=== PATIENT | male | born 1950 | race Caucasian/White ===

== ENCOUNTER 2018-06-19 12:45 | Observation (INO) | payer OTHER ==
[~2018-06-19] VITALS: Ht 180.3 cm; Wt 107.3 kg
--- NOTE | ~2018-06-19 | HEMODYNAMI ---
PATIENT:VICKIE SMITH MEDICAL RECORD: [id number] : 46 [facility] D.2123 [id number] ADMISSION DATE: 06/19/18 Generatedon:06/20/201816:04 Patient name: VICKIE SMITH Patient #: [id number] SSN: D OB: 1950 Date of study: 06/20/2018 Page: Of Hemodynamic Procedure Report Patient Data Patient Demographics Procedure consent was obtained First Name: VICKIE Gender: Male Last Name: LUIS : 1950 Middle Initial: D Age: 68 year(s) Patient #: [id number] Race: Unknown Additional ID: [id number] Contact details [address]: [address] [place] [address] State: [place] City: [place] Zip code: [address] Past Medical History Allergies Allergen Reaction Date Comments Reported Other allergy 06/20/2018 Niacin Admission Admission Data Admission Date: 06/19/2018 Admission Time: 12:45 Admit Source: Other Room #: D.2123 Lab Results Lab Result Date: 06/20/2018 Lab Result Time: 5:18 Biochemistry Name Units Result Min Max BUN mg/dl 16 --(---*)-- 7 18 Creatinine mg/dl 1.2 --(---*)-- 0.6 1.3 CBC Name Units Result Min Max Hematocrit % 44.5 --(*---)-- 42 54 Hemoglobin g/dl 15.1 --(-*--)-- 13.5 17.5 Procedure Procedure Types Cath Procedure Diagnostic Procedure LHC LHC w/Coronaries Procedure Description Procedure Date Procedure Date: 06/20/2018 Procedure Start Time: 15:55 Procedure End Time: 16:03 Procedure Staff Name Function Edson Cartwright MD Performing Physician Sherie Hawkins RT Monitor Bertram Rodriguez RT Scrub Timmy Anne RN Nurse Procedure Data Cath Procedure Fluoroscopy Diagnostic fluoroscopy Total fluoroscopy Time: 1.3 time: 1.3 min min Diagnostic fluoroscopy Total fluoroscopy dose: 514 dose: 514 mGy mGy Contrast Material Contrast Material Type Amount (ml) Isovue 300 39 Entry Location Entry Primary Successful Side Size Upsize Upsize Entry Closure Christie ccessful Closure Location (Fr) 1 (Fr) 2 (Fr) Remarks Device Remarks Radial Right 6 Fr Mechanical artery Short Compression Estimated blood loss: 10 ml Diagnostic catheters Device Type Used For End Catheter Placement DIAGNOSTIC [place] 110cm 5 Procedure Fr catheter ([id number]) Procedure Complications No complications Procedure Medications Medication Administration Route Dosage 0.9% NaCl I.V. 100 ml/hr Oxygen etCO2 Nasal cannula 2 l/min Heparin Flush Bag added to field 2 bags (1000units/500ml NS) Lidocaine 2% added to field 20 Radial Cocktail added to field 1 syringe (Verapomil 2mg/Nitro 400mcg/Heparin 1500units) Versed I.V. 2 mg Fentanyl I.V. 100 mcg Radial Cocktail I.A. 1 syringe (Verapomil 2mg/Nitro 400mcg/Heparin 1500units) Hemodynamics Rest HGB: 15.1 (g/dl) Heart Rate: 68 (bpm) Snapshots Pre Cath Intra NCS Post Cath Vital Signs Time Heart Resp SPO2 etCO2 NIBP (mmHg) Rhythm Pain Sedation Rate (ipm) (%) (mmHg) Status Level (bpm) 15:48:35 64 16 98 37.5 166/87(128) A-Fib 0 (11) 10(A) , No pain 15:52:53 68 14 97 0 161/101(120) A-Fib 0 (11) 10(A) , No pain 15:57:13 74 15 97 33 131/88(127) A-Fib 0 (11) 10(A) , No pain 16:01:23 61 19 92 39.7 138/97(117) A-Fib 0 (11) 10(A) , No pain Medications Time Medication Route Dose Verified Delivered Reason Notes Effectiveness by by 15:47:21 0.9% NaCl I.V. 100 Timmy Timmy Per ml/hr Dayana Anne physician RN RN 15:47:31 Oxygen etCO2 2 l/min Timmy Timmy for low 02 Nasal Dayana Anne sats cannula RN RN 15:47:42 Heparin Flush added 2 bags Timmy Timmy used for Bag to Dayana Anne procedure (1000units/500ml field RN RN NS) 15:47:52 Lidocaine 2% added 20ml Timmy Timmy for local to vial Lorigan Dayana anesthetic RN RN 15:48:54 Radial Cocktail added 1 Timmy Timmy used for (Verapomil to syringe Dayana Anne procedure 2mg/Nitro field SEGUNDO RN 400mcg/Heparin 1500units) 15:54:55 Versed I.V. 2 mg Timmy Timmy for sedation Dayana Anne RN, RN 15:55:04 Fentanyl I.V. 100 mcg Timmy Timmy for sedation Dayana Anne RN RN 15:57:16 Radial Cocktail I.A. 1 Timmy Edson for (Verapomil syringe Dayana Cartwright MD vasodilation 2mg/Nitro RN 400mcg/Heparin 1500units) Procedure Log Time Note 15:21:38 Informed consent obtained and on chart 15:21:41 Admit Source: Other 15:21:57 Diagnostic Cath status Elective 15:21:59 Time tracking: Regular hours (M-F 7:00 - 5:00) 15:22:03 Plan of Care:Hemodynamics will remain stable., Cardiac rhythm will remain stable., Comfort level will be maintained., Respiratory function will remain adequate., Patient/ family verbilizes understanding of procedure., Procedure tolerated without complication., Recovers from procedure without complications.. 15:23:27 H&P Date Dictated: 06/19/2018 Within 30 days and on chart.. 15:26:27 Lab Result : BUN 16 mg/dl 15:26:27 Lab Result : Creatinine 1.2 mg/dl 15::27 Lab Result : Hemoglobin 15.1 g/dl 15:26:27 Lab Result : Hematocrit 44.5 % 15:26:29 Lab results completed and on chart. 15:27:08 Timmy Anne RN sent for patient. Start room use. 15:35:29 Patient received from Med II to CCL 2 Alert and oriented. Tansferred to table in Supine position. 15:35:30 Warm blankets applied, and brandin hugger turned on for patient comfort. 15:35:31 Correct patient and procedure confirmed by team. 15:35:31 ECG and BP/O2 sat monitors applied to patient. 15:35:32 Pre-procedure instructions explained to patient. 15:35:33 Pre-op teaching completed and patient verbalized understanding. 15:47:16 Vital chart was started 15:47:19 Baseline sample Acquired. 15:47:21 0.9% NaCl 100 ml/hr I.V. was administered by Timmy Anne RN; Per physician; 15:47:31 Oxygen 2 l/min etCO2 Nasal cannula was administered by Timmy Anne RN; for low 02 sats; 15:47:42 Heparin Flush Bag (1000units/500ml NS) 2 bags added to field was administered by Timmy Anne RN; used for procedure; 15:47:47 Rhythm: atrial flutter 15:47:49 Full Disclosure recording started 15:47:52 Lidocaine 2% 20ml vial added to field was administered by Timmy Anne RN; for local anesthetic; 15:47:52 Family in patients room. 15:47:54 Patient NPO since Lunch. 15:48:09 Patient allergic to Other allergyNiacin 15:48:12 Is the patient allergic to Iodine/contrast media? No. 15:48:14 Was the patient premedicated? Yes 15:48:15 Is patient on blood thinner?Yes 15:48:19 ACC The patient was administered the following blood thiners within the last 24 hours: ACCPlavix 15:48:23 Patient diabetic? No. 15:48:25 If diabetic: On Metformin? Yes 15:48:28 If on Metformin: Last Dose? 06/19/2018 15:48:35 Snore? Yes 15:48:37 Sleep apnea? Yes 15:48:45 Dentures? No ? 15:48:49 Patient pain scale 0/10 ?. 15:48:54 Radial Cocktail (Verapomil 2mg/Nitro 400mcg/Heparin 1500units) 1 syringe added to field was administered by Timmy Anne RN; used for procedure; 15:48:56 IV patent on arrival in left forearm with 0.9% NaCl at [facility]. 15:49:07 Right Radial & Right Groin area was prepped with chlora-prep and draped in sterile fashion 15:49:08 Alarms reviewed by R. N. 15:49:09 Sharps counted by scrub and verified by R.N. 15:49:10 Physician paged 15:54:00 Physician arrived 15:54:01 --------ALL STOP TIME OUT------ 15:54:01 Final Timeout: patient, procedure, and site verified with staff and physician. All members of the team are in agreement. 15:54:04 Right Radial & Right Groin site verified by team. 15:54:10 Fire Safety Assessment: A--An alcohol-based skin anteseptic being used preoperatively., C--Open oxygen or nitrous oxide is being used., D--An ESU, laser, or fiber-optic light is being used. 15:54:14 Physical assessment completed. ASA score P 2 - A patient with mild systemic disease as per Edson Cartwright MD. 15:54:18 Sedation plan: IV Moderate Sedation Medication:Versed, Fentanyl 15:54:26 Bag Decanter () opened to sterile field. 15:54:26 Medline Cath Pack ([id number]) opened to sterile field. 15:54:27 DIAGNOSTIC WIRE .035 260cm J wire (547615) opened to sterile field. 15:54:55 Versed 2 mg I.V. was administered by Timmy Anne RN; for sedation; 15:55:04 Fentanyl 100 mcg I.V. was administered by Timmy Anne RN; for sedation; 15:55:09 Use device set Radial Dx or PCI 15:55:17 Procedure started. 15:55:34 Local anesthetic to right radial artery with Lidocaine 2% by Edson Cartwright MD.INITIAL ACCESS ONLY 15:55:45 A 6 Fr Short sheath was inserted into the Right Radial artery 15:55:49 SHEATH 6FR Slender (801060) opened to sterile field. 15:55:55 MBrace Wrist Support ([id number]) opened to sterile field. 15:55:57 Tegaderm 4 x 4 (1626W) opened to sterile field. 15:55:57 ACIST Manifold (09151) opened to sterile field. 15:55:58 ACIST Hand Control (08861) opened to sterile field. 15:56:00 DIAGNOSTIC WIRE .035 260cm J wire (328465) opened to sterile field. 15:56:02 Bag Decanter () opened to sterile field. 15:56:02 Medline Cath Pack ([id number]) opened to sterile field. 15:56:04 ACIST Syringe (77287) opened to sterile field. 15:56:21 A DIAGNOSTIC [place] 110cm 5 Fr catheter (641671) was advanced over the wire and used for Procedure. 15:56:34 LCA angiography performed. 15:57:16 Radial Cocktail (Verapomil 2mg/Nitro 400mcg/Heparin 1500units) 1 syringe I.A. was administered by Edson Cartwright MD; for vasodilation; 15:57:23 LV gram done using CONRAD 15:57:36 EF : 60 % 15:57:39 LCA angiography performed. 15:58:30 RCA angiography performed. 15:59:19 Catheter removed. 15:59:44 Sheath removed intact; hemostasis achieved with Mechanical Compression to the Right Radial artery. 15:59:47 Procedure ended.(Physican Out) 16:00:03 Fluoroscopy time 01.30 minutes. 16:00:08 Contrast amount:Isovue 300 39ml. 16:00:17 Fluoroscopy dose: 514 mGy 16:00:17 Flurop Dose total: 514 16:00:19 Sharps counted by scrub and verified by R.N. 16:02:05 TR band inflated with 11cc of air. 16:02:06 Insertion/operative site no bleeding no hematoma. 16:02:08 Post Procedure Pulses reassessed and unchanged 16:02:12 Post-procedure physical assessment completed. ASA score P 2 - A patient with mild systemic disease as per Edson Cartwright MD. 16:02:17 Post procedure rhythm: atrial fibrillation 16:02:20 Estimated blood loss: 10 ml 16:02:22 Post procedure instruction explained to patient.Patient verbalizes understanding. 16:03:00 Patient needs reinforcement of post procedure teaching. 16:03:10 Procedure and supply charges have been captured, reviewed, submitted and are correct. 16:03:27 Procedure Complication : No complications 16:03:31 Vital chart was stopped 16:03:32 See physician's report for complete and final results. 16:03:34 Report given to Pre/Post Procedure Room. 16:03:37 Patient transfered to Pre/Post Procedure Room with Stretcher. 16:03:44 Procedure ended. 16:03:44 Full Disclosure recording stopped 16:03:47 End room use (Document Last) Device Usage Item Name Manufacture Quantity Catalog Hospital Part Current Minimal Lot# / Number Charge Number Stock Stock Serial# Code [facility] 2 2001S [id number] 14667 185573 5 Decanter Medical Inc. () Medline Medline 2 [id number] 313196 93252 342756 5 Cath Pack ([id number]) DIAGNOSTIC [facility] 2 478958 857560 612728 281494 30 WIRE .035 260cm J wire (418538) SHEATH 6FR Terumo 1 [id number] 989771 697641 188806 5 Slender (80-1060) MBrace Advanced 1 140-0250-00 673433 93113 482984 5 Wrist Vascular Support Dynamics ([id number]) Tegaderm 4 3M 1 1626W 334926 347389 081994 5 x 4 (1626W) ACIST Acist 1 62671 570545 713419 371604 5 Manifold Medical (61368) Systems Inc ACIST Hand Acist 1 66822 252291 834211 533722 5 Control Medical (58179) Systems Inc ACIST Acist 1 64316 782431 649013 224729 20 Syringe Medical (87352) Systems Inc DIAGNOSTIC Terumo 1 46-5672 481460 498959 067159 5 [place] 110cm 5 Fr catheter (749868) Signature Audit Assonet Stage Time Signature Unsigned Intra-Procedure 06/20/2018 Sherie Hawkins 4:04:18 PM RT(R) Signatures Monitor : Sherie Hawkins Signature : RT Date : Time : [facility] [address] [place] [address]
[~2018-06-19 12:45] MED LIST: BAYER CHEWABLE81 MG PO; BENICAR40 MG PO; CATAPRES0.1 MG PO; GLIPIZIDE10 MG PO; GLUCOPHAGE1000 MG PO; PRILOSEC20 MG PO
[2018-06-19 13:37] VITALS: BP 164/83
--- NOTE | 2018-06-19 14:17 | NUR ---
22G LEFT WRIST PLACED BY [facility] WITH INSTRUCTOR AT BEDSIDE. PATIENT TOLERATED WELL
[2018-06-19 14:18] VITALS: BP 164/83; BMI 32.9
[2018-06-19] MEDS ORDERED: HYTRIN10 MG PO (14:51)
[2018-06-19] MEDS ORDERED: XARELTO20 MG PO (14:51)
[2018-06-19] MEDS ORDERED: NORVASC10 MG PO (14:52)
[2018-06-19] MEDS ORDERED: HUMALOG KWIK INJ 100 (14:53)
[2018-06-19] MEDS ORDERED: LANTUS INJ 100 SQ ×2 (14:53→14:54)
[2018-06-19 14:54] LABS: BASOPHILS 0.4 % (0-2); EOSINOPHILS 1.7 % (0-7); HEMATOCRIT 44.9 % (42.0-54.0); HEMOGLOBIN 15.8 g/dL (13.5-17.5); IMMATURE GRANULOCYTES 0.4 % (0-5); LYMPHOCYTES 23.2 % (15-50); MCH 29.9 pg (26.0-34.0); MCHC 35.2 g/dL (31.0-37.0); MEAN PLATELET VOLUME 10.9 fL (7.4-10.4); MONOCYTES 7.5 % (2-11); NEUTROPHILS 66.8 % (40-80); PLATELET COUNT 228 10x3/uL (130-400); RBC 5.28 10x6/uL (4.20-6.10); RDW 13.4 % (11.5-14.5); WBC 8.3 10x3/uL (4.8-10.8)
[2018-06-19 15:31] LABS: ALBUMIN 3.5 g/dL (3.4-5.0); ALKALINE PHOSPHATASE 92 U/L (46-116); ALT (SGPT) 34 U/L (10-68); BILIRUBIN - TOTAL 0.33 mg/dL (0.2-1.3); CALCIUM 8.5 mg/dL (8.5-10.1); CARBON DIOXIDE 26.5 mmol/L (21.0-32.0); CHLORIDE - SERUM 103 mmol/L (98-107); CKMB 1.2 U/L (0.0-3.6); CREATINE KINASE 105 UL (21-232); CREATININE - SERUM 1.2 mg/dL (0.6-1.3); MAGNESIUM - SERUM 1.6 mg/dL (1.8-2.4); PHOSPHOROUS 3.6 mg/dL (2.5-4.9); POTASSIUM - SERUM 3.9 mmol/L (3.5-5.1); PROTEIN - SERUM 7.1 g/dL (6.4-8.2); SODIUM 141 mmol/L (136-145); UREA NITROGEN 16 mg/dL (7-18); eGFR NON AFRICAN AMERICAN 64 mL/min (90-120)
[2018-06-19 15:32] LABS: CALC OSMOLALITY 282 mosm/kg (275-300); GLUCOSE 109 mg/dL (74-106); TROPONIN-I < 0.017 ng/mL (0.000-0.060)
[2018-06-19 16:46] VITALS: Ht 180.3 cm; Wt 107.3 kg
--- NOTE | 2018-06-19 17:03 | NUR ---
ALERT AND ORIENTED X4. RESTING IN BED. FAMILY AT BEDSIDE. EKG COMPLETE PLACED ON CHART. CONTROLLED AFIB ON TELEMETRY. REFUSE SCDs. TAKES XARELTO. CONSENTS FOR SENIOR GEOLOGIST SIGNED ON CHART. DENIES ANY NEEDS. CONTINUE PLAN OF CARE AND SAFETY PRECAUTIONS.
--- NOTE | 2018-06-19 19:30 | NUR ---
RESUMING PATIENT CARE. PATIENT IS ALERT AND ORIENTED. RESPIRATIONS ARE EVEN AND UNLABORED. FAMILY AT BEDSIDE. NO DENIES AT THIS TIME. NO S/S OF DISTRESS. NO C/O PAIN. CALL LIGHT WITHIN REACH. WILL CPOC.
[2018-06-19 20:00] VITALS: BP 142/82
[2018-06-19 20:21] LABS: CKMB 1.2 U/L (0.0-3.6); CREATINE KINASE 94 UL (21-232)
[2018-06-19 20:22] LABS: TROPONIN-I < 0.017 ng/mL (0.000-0.060)
[2018-06-20 02:47] LABS: CKMB 0.9 U/L (0.0-3.6); CREATINE KINASE 79 UL (21-232); TROPONIN-I < 0.017 ng/mL (0.000-0.060)
[2018-06-20 04:00] VITALS: BP 120/84
[2018-06-20 05:31] LABS: BASOPHILS 0.6 % (0-2); EOSINOPHILS 2.3 % (0-7); HEMATOCRIT 44.5 % (42.0-54.0); HEMOGLOBIN 15.1 g/dL (13.5-17.5); IMMATURE GRANULOCYTES 0.3 % (0-5); LYMPHOCYTES 28.5 % (15-50); MCH 29.5 pg (26.0-34.0); MCHC 33.9 g/dL (31.0-37.0); MCV 86.9 fL (80.0-100.0); MEAN PLATELET VOLUME 10.8 fL (7.4-10.4); MONOCYTES 11.3 % (2-11); PLATELET COUNT 209 10x3/uL (130-400); RBC 5.12 10x6/uL (4.20-6.10); RDW 13.7 % (11.5-14.5)
[2018-06-20 05:41] LABS: WBC 6.2 10x3/uL (4.8-10.8)
[2018-06-20 05:53] LABS: ANION GAP 12.2 mmol/L (8-16); CALCIUM 8.1 mg/dL (8.5-10.1); CARBON DIOXIDE 29.8 mmol/L (21.0-32.0); CHOL - HDL RATIO 2.6 ratio (2.3-4.9); CREATININE - SERUM 1.2 mg/dL (0.6-1.3)
[2018-06-20 05:58] LABS: MAGNESIUM - SERUM 2.1 mg/dL (1.8-2.4)
--- NOTE | 2018-06-20 07:35 | NUR ---
ASSESSMENT DONE. DENIESD NEEDS
[2018-06-20 07:48] VITALS: BP 154/71
--- NOTE | 2018-06-20 08:38 | NUR ---
IV PATENT. AT BS. CALL LIGHT IN REACH. WILL CONT. PLAN OF CARE.
[2018-06-20 11:52] VITALS: BP 146/91
--- NOTE | 2018-06-20 12:53 | MORECARE ---
CASE MANAGEMENT DISCHARGE SUMMARY PATIENT: VICKIE SMITH UNIT: [id number] ADM DATE: 06/19/18 AGE: 68 : 48 SEX: M ROOM/BED: D.3 AUTHOR: CRUZ WADE PHYSICIAN: REFERRING PHYSICIAN: JOSE GAYTAN MD DATE OF SERVICE: 06/20/18 Discharge Plan Patient Name: VICKIE SMITH Facility: [facility]:[place] : 1950 Planned Disposition: Anticipated Discharge Date: Discharge Date: Expected LOS: Initial Reviewer: [email or web address] Initial Review Date: 06/19/2018 Generated: 06/20/18 1:53 pm Coverage Notice Reviewer: [email or web address] - Cecille Luna Notice Issued Date-Time: 06/20/2018 12:32 Notice Type: Medicare Outpatient Observation Notice Notice Delivered To: Patient Relationship to Patient: Self Director Physical Therapy Name: Delivery Method: HAND - Hand Delivered Bonnie Days: Prior Verbal Notification: Recipient Understood Notice: Yes Recipient Signature: Yes Med Rec Note Co-signed by Attending: Coverage Notice Comment: Patient Name: VICKIE SMITH Page [phone] at 1253 All edits/amendments must be made on the electronic document DICTATION DATE: 06/20/18 1253 METALLURGY TEACHER: LIZZY 06/20/18 1253 RPT#: [id number] DC DATE: STATUS: ADM IN [facility] [address] [place] [address] END OF REPORT
--- NOTE | 2018-06-20 16:30 | NUR ---
RETURN FROM CATH, TR BAND TO RT WRIST.
[2018-06-20 20:00] VITALS: BP 134/71
[2018-06-21 00:43] VITALS: BP 130/70
[2018-06-21 04:00] VITALS: BP 149/84
[2018-06-21 05:15] LABS: BASOPHILS 0.7 % (0-2); EOSINOPHILS 3.6 % (0-7); HEMATOCRIT 45.2 % (42.0-54.0); HEMOGLOBIN 15.7 g/dL (13.5-17.5); IMMATURE GRANULOCYTES 0.3 % (0-5); MCHC 34.7 g/dL (31.0-37.0); MCV 86.3 fL (80.0-100.0); MONOCYTES 10.1 % (2-11); NEUTROPHILS 57.3 % (40-80); PLATELET COUNT 205 10x3/uL (130-400); RBC 5.24 10x6/uL (4.20-6.10); RDW 13.6 % (11.5-14.5); WBC 5.8 10x3/uL (4.8-10.8)
[2018-06-21 05:34] LABS: ANION GAP 11.7 mmol/L (8-16); CALCIUM 8.4 mg/dL (8.5-10.1); CREATININE - SERUM 1.1 mg/dL (0.6-1.3)
[2018-06-21 05:46] LABS: POTASSIUM - SERUM 4.7 mmol/L (3.5-5.1)
--- NOTE | 2018-06-21 07:30 | NUR ---
ASSESSMENT COMPLETED. AWAKE AND ALERT. TELEMERTY SHOWS CAF. 02 AT 2 L/M PER NC. TR CATH SITE CLEAN AND DRY. LEFT ARM SL. NO NEEDS VOICED
[2018-06-21 07:58] VITALS: BP 153/88
--- NOTE | 2018-06-21 09:24 | NUR ---
RESTS IN BED WITHOUT NEEDS VOICED. AT BS. CALL LIGHT IN REACH.
[2018-06-21 11:33] VITALS: BP 156/85
[2018-06-21] MEDS ORDERED: PROTONIX40 MG PO (14:51)
--- NOTE | 2018-06-21 16:03 | NUR ---
PT DCD. IV DCD WITH TIP INTACT. INSTRUCTIONS GIVE TO PT AND FAMILY. TO PRIVATE CAR PER WHEELCHAIR
--- NOTE | 2018-06-22 07:44 | MORECARE ---
CASE MANAGEMENT DISCHARGE SUMMARY PATIENT: VICKIE SMITH UNIT: [id number] ADM DATE: 06/19/18 AGE: 68 : 48 SEX: M ROOM/BED: D.2123 AUTHOR: CRUZ WADE PHYSICIAN: REFERRING PHYSICIAN: JOSE GAYTAN MD DATE OF SERVICE: 06/22/18 Discharge Plan Patient Name: VICKIE SMITH [facility] [facility] 1950 Planned Disposition: Home Anticipated Discharge Date: 06/21/18 Discharge Date: 06/21/2018 Expected LOS: 2 Initial Reviewer: [email or web address] Initial Review Date: 06/19/2018 Generated: 06/22/18 8:44 am Coverage Notice Reviewer: [email or web address] Bebe Luna Notice Issued Date-Time: 06/20/2018 12:32 Notice Type: Medicare Outpatient Observation Notice Notice Delivered To: Patient Relationship to Patient: Self Java Developer With Security Clearance Name: Delivery Method: HAND - Hand Delivered Bonnie Days: Prior Verbal Notification: Recipient Understood Notice: Yes Recipient Signature: Yes Med Rec Note Co-signed by Attending: Coverage Notice Comment: Last DP export: 06/20/18 11:53 a Patient Name: VICKIE SMITH Page [phone] at 0744 All edits/amendments must be made on the electronic document DICTATION DATE: 06/22/1843 CLAIM CLERK: LIZZY 06/22/18 0743 RPT#: [id number] DC DATE:06/21/18 STATUS: DIS IN [facility] [address] [place] [address] END OF REPORT
--- NOTE | 2018-06-25 11:45 | EC ---
PATIENT:VICKIE SMITH DATE OF SERVICE: 06/19/18 SEX: M MEDICAL RECORD: [id number] DATE OF : [birth year] LOCATION:D.M2 D.212 AGE OF PATIENT: 68 ADMISSION DATE: 06/19/18 REFERRING PHYSICIAN: INTERPRETING PHYSICIAN: STEVEN CARTWRIGHT MD ECHOCARDIOGRAM REPORT ECHO CHARGES 4 ECHO COMPLETE Date: 06/20/18 CLINICAL DIAGNOSIS: ECHOCARDIOGRAPHIC MEASUREMENTS (adult normal given) AC root (d.<3.7cm) 3.1 cm LV Septum d (<1.2 cm> 1.1 cm Valve Excursion 1.7 cm LV Septum (systole) 1.8 cm Left Atria (s.<4.0cm> 4.4 cm LVPW d(<1.2cm) 1.1 cm RV (d.<2.3cm) 3.3 cm LVPW (sytole) 1.9 cm LV diastole(<5.6CM) 4.9 cm MV E-F(>70mm/sec) cm LV systole 2.8 cm LVOT Diameter 1.8 cm MV exc.(>10mm) cm Est.ejection fraction (50-75%) % DOPPLER: LVIT cm/sec A cm/sec E 111 cm/sec LA cm/sec RVSP 39.0 mmHg LVOT 101 cm/sec AOP1/2T m/s Asc. Ao 124 cm/sec RVOT 55.0 cm/sec RA cm/sec PA 90.0 cm/sec AV Gradient Peak 6.2 mmHg AV Mean 2.9 mmHg AV Area 2.0 cm MV Gradient Peak 5.7 mmHg MV Mean 2.1 mmHg MV Area cm COMMENTS: Repairer Engine Production: Barbra LOMBARDO Seafood Clerk: 1 Dr. Cartwright TAPE# PACS Pericardial Effusion Y DATE OF SERVICE: 06/20/2018 ECHOCARDIOGRAM DATE OF SERVICE: 06/20/2018 FINDINGS: 1. Left ventricular chamber size is within normal limits. Left ventricular systolic function is normal. Overall ejection fraction estimated at 55%. 2. Left atrium is enlarged at 4.4 cm. Right atrium and right ventricle chamber ECHOCARDIOGRAM REPORT [id number] VICKIE SMITH sizes are as well mildly dilated. 3. Valvular structures have normal structure and motion. 4. Doppler interrogation reveals moderate mitral regurgitation, mild tricuspid regurgitation, no other valvular insufficiency or stenosis. 5. No evidence of pericardial effusion or left ventricular thrombus. TRANSINT:[id number] Voice Confirmation ID: [id number] DOCUMENT ID: [id number] STEVEN CARTWRIGHT MD at 1145 CC: JOSE GAYTAN [id number] DICTATION DATE: 06/20/18 1608 DIRECTOR OF TRAUMA: 06/20/18 1747 DIS IN 06/21/18 [place] [id number] [place] [id number]
--- NOTE | 2018-06-25 11:45 | OP ---
PATIENT NAME: VICKIE SMITH MEDICAL RECORD: [id number] :46 LOCATION:D.M2 D.2123 ADMISSION DATE:06/19/18 SURGEON: STEVEN BOSTON MD DATE OF OPERATION: 06/20/2018 PROCEDURES: 1. Left heart catheterization. 2. Selective coronary angiography. 3. Left ventriculogram. INDICATION: Chest pain compatible with angina. PROCEDURE IN DETAIL: After informed consent was obtained with detailed description of risks and benefits as well as alternative therapies, the patient elected to proceed with angiogram and heart catheterization. The right radial area was prepped and draped in normal sterile fashion. Right radial artery was cannulated via modified Seldinger technique with placement of 5-Jamaican sheath. All catheters were exchanged through this sheath. FINDINGS: Left ventriculogram performed in standard 30-degree CONRAD view reveals preserved cardiac wall motion. Ejection fraction 55%. SELECTIVE CORONARY ANGIOGRAPHY: Left main, left anterior descending, left circumflex, and right coronary artery are all smooth-walled vessels with no angiographic evidence of coronary artery disease. OVERALL IMPRESSION: 1. No angiographic evidence of coronary artery disease. 2. Normal left heart pressures. 3. Normal left ventricular systolic function. Chest pain is noncardiac in etiology. No further cardiac workup needs to be ascertained. TRANSINT:[id number] Voice Confirmation ID: [id number] DOCUMENT ID: [id number] STEVEN BOSTON MD at 1145 CC: JOSE GAYTAN [phone] DICTATION DATE: 06/20/18 1603 EQUITY RESEARCH ASSOCIATE: 06/20/18 1708 DIS IN 06/21/18 [place] [id number] [place] [id number]
== END 2018-06-21 16:05 | disposition home or self-care (01) ==
LOC: D.M2 12:45 → D.SDCHOLD 12:45 → OBSVTIME 12:50 → D.M2 12:59
PROVIDERS: Internal Medicine Nephrology; ADMIT Family Medicine
DX: R07.89 Other chest pain (principal); I48.91 Unspecified atrial fibrillation; E83.42 Hypomagnesemia; I10 Essential (primary) hypertension; E78.5 Hyperlipidemia, unspecified; E11.9 Type 2 diabetes mellitus without complications; K21.9 Gastro-esophageal reflux disease without esophagitis; J44.9 Chronic obstructive pulmonary disease, unspecified

== ENCOUNTER 2018-12-14 18:46 | Observation (INO) | payer OTHER, MEDICAID ==
[~2018-12-14] VITALS: Ht 180.3 cm; Wt 110.5 kg
[~2018-12-14 18:46] MED LIST changes: +HUMALOG KWIK INJ 100; +HYTRIN10 MG PO; +LANTUS INJ 100 SQ; +NORVASC10 MG PO; +PROTONIX40 MG PO; +XARELTO20 MG PO
[2018-12-14] MEDS ORDERED: METOPROLOL TART50 MG PO (19:02)
[2018-12-14] MEDS ORDERED: LASIX40 MG PO (19:03)
[2018-12-14] MEDS ORDERED: EDARBI40 MG PO (19:03)
[2018-12-14] MEDS ORDERED: GLUCOPHAGE500 MG PO (19:03)
[2018-12-14 20:03] LABS: BASOPHILS 0.4 % (0-2); EOSINOPHILS 3.7 % (0-7); HEMATOCRIT 40.8 % (42.0-54.0); HEMOGLOBIN 13.9 g/dL (13.5-17.5); IMMATURE GRANULOCYTES 0.6 % (0-5); LYMPHOCYTES 15.2 % (15-50); MCH 30.3 pg (26.0-34.0); MCHC 34.1 g/dL (31.0-37.0); MCV 88.9 fL (80.0-100.0); MEAN PLATELET VOLUME 10.8 fL (7.4-10.4); MONOCYTES 11.4 % (2-11); NEUTROPHILS 68.7 % (40-80); PLATELET COUNT 177 10x3/uL (130-400); RBC 4.59 10x6/uL (4.20-6.10); RDW 13.3 % (11.5-14.5); WBC 7.8 10x3/uL (4.8-10.8)
[2018-12-14 20:14] VITALS: BP 170/72
[2018-12-14 20:17] LABS: ALBUMIN 3.3 g/dL (3.4-5.0); ALKALINE PHOSPHATASE 117 U/L (46-116); ALT (SGPT) 32 U/L (10-68); BILIRUBIN - TOTAL 0.41 mg/dL (0.2-1.3); CALC OSMOLALITY 286 mosm/kg (275-300); CALCIUM 8.6 mg/dL (8.5-10.1); CARBON DIOXIDE 28.1 mmol/L (21.0-32.0); CHLORIDE - SERUM 106 mmol/L (98-107); CREATININE - SERUM 1.3 mg/dL (0.6-1.3); POTASSIUM - SERUM 4.1 mmol/L (3.5-5.1); SODIUM 141 mmol/L (136-145); UREA NITROGEN 16 mg/dL (7-18); eGFR NON AFRICAN AMERICAN 58 mL/min (90-120)
[2018-12-14 20:19] LABS: GLUCOSE 185 mg/dL (74-106)
[2018-12-14 20:28] LABS: CKMB 1.6 U/L (0.0-3.6); CREATINE KINASE 104 UL (21-232); MAGNESIUM - SERUM 1.6 mg/dL (1.8-2.4); PRO BNP 2046 pg/mL (0-125)
[2018-12-14 20:29] LABS: TROPONIN-I < 0.017 ng/mL (0.000-0.060)
[2018-12-14 20:37] LABS: INR 1.41 (0.85-1.17); PROTIME 16.7 SECONDS (11.6-15.0)
[2018-12-14 20:40] VITALS: BP 146/87
--- NOTE | 2018-12-14 22:00 | NUR ---
PT ARRIVED VIA W/C FROM ER WITH DX CP. NO DISTRESS NOTED. FAMILY AT BEDSIDE.
[2018-12-14 22:10] VITALS: BP 175/105; Ht 180.3 cm; Wt 110.5 kg
--- NOTE | 2018-12-14 22:34 | NUR ---
ADMISSION ASESSMENT, HISTORY AND HOME MED LIST COMPLETED. PT STATES CP NOW 06/17. ALERT AND ORIENTED TO PERSON, PLACE AND TIME. CABALLERO. IV TO LAC SL. LUNGS DIMINISHED IN BASES BILAT WITH ACATTERED CRACKLES. SCATTERED INSP WHEEZES TO BILAT UPPER LOBES. CAF PER CM HR 72. EXPLAINED RATIONALE FOR NPO AFTER MIDNIGHT. PT STATED UNDERSTANDING. FAMILY AT BEDSIDE. SR UP X2,CALL LIGHT WITHIN REACH.
--- NOTE | 2018-12-15 00:24 | NUR ---
PT RESTING WITH EYES CLOSED. RESP EVEN AND REGULAR. SR UP X2, CALL LIGHT WITHIN REACH.
[2018-12-15 00:51] LABS: CKMB 1.4 U/L (0.0-3.6); CREATINE KINASE 91 UL (21-232); TROPONIN-I < 0.017 ng/mL (0.000-0.060)
--- NOTE | 2018-12-15 01:58 | NUR ---
PT RESTING WITH EYES CLOSED. RESP EVEN AND REGULAR. SR UP X2, CALL LIGHT WITHIN REACH.
[2018-12-15 02:49] LABS: BASOPHILS 0.1 % (0-2); EOSINOPHILS 3.7 % (0-7); HEMATOCRIT 39.4 % (42.0-54.0); HEMOGLOBIN 13.6 g/dL (13.5-17.5); IMMATURE GRANULOCYTES 0.7 % (0-5); LYMPHOCYTES 17.7 % (15-50); MCH 30.5 pg (26.0-34.0); MCHC 34.5 g/dL (31.0-37.0); MCV 88.3 fL (80.0-100.0); MEAN PLATELET VOLUME 10.7 fL (7.4-10.4); MONOCYTES 11.9 % (2-11); NEUTROPHILS 65.9 % (40-80); PLATELET COUNT 166 10x3/uL (130-400); RBC 4.46 10x6/uL (4.20-6.10); RDW 13.3 % (11.5-14.5); WBC 7.6 10x3/uL (4.8-10.8)
--- NOTE | 2018-12-15 02:53 | NUR ---
MORPHINE 4MG SIVP GIVEN FOR C/O SEVERE LIVINGSTON. EKG DONE. WILL CONTNUE TO MONITOR.
[2018-12-15 03:19] LABS: ALBUMIN 3.1 g/dL (3.4-5.0); ALKALINE PHOSPHATASE 107 U/L (46-116); ALT (SGPT) 30 U/L (10-68); BILIRUBIN - TOTAL 0.41 mg/dL (0.2-1.3); CALCIUM 8.8 mg/dL (8.5-10.1); CARBON DIOXIDE 28.4 mmol/L (21.0-32.0); CHLORIDE - SERUM 109 mmol/L (98-107); CKMB 1.4 U/L (0.0-3.6); CREATINE KINASE 82 UL (21-232); CREATININE - SERUM 1.3 mg/dL (0.6-1.3); GLUCOSE 213 mg/dL (74-106); POTASSIUM - SERUM 3.8 mmol/L (3.5-5.1); PROTEIN - SERUM 6.5 g/dL (6.4-8.2); SODIUM 142 mmol/L (136-145); eGFR NON AFRICAN AMERICAN 58 mL/min (90-120)
[2018-12-15 03:20] LABS: CALC OSMOLALITY 287 mosm/kg (275-300); TROPONIN-I < 0.017 ng/mL (0.000-0.060); UREA NITROGEN 11 mg/dL (7-18)
--- NOTE | 2018-12-15 04:20 | NUR ---
PT RESTING WITH EYES CLOSED. RESP EVEN AND REGULAR. SR UP X2, CALL LIGHT WITHIN.
[2018-12-15 04:30] VITALS: BP 168/82
--- NOTE | 2018-12-15 06:42 | NUR ---
AM FSBS 179. PT STATED MORPHINE ALLEVIATED LIVINGSTON. NPO UNTIL SEEN BY CADIOLOGY. NEEDS MED; WILL CONTINUE TO MONITOR.
--- NOTE | 2018-12-15 08:13 | NUR ---
ASSESSMENT COMPLETED. TELEMERTY SHOWS CAF 77. ALERT AND ORIENTED. UP AB CHRISTEL. NO NEEDS VOICED. SR UP WITH CALL LIGHT IN REACH
[2018-12-15 08:43] VITALS: BP 164/92
[2018-12-15 10:19] LABS: CKMB 1.4 U/L (0.0-3.6); CREATINE KINASE 80 UL (21-232); TROPONIN-I < 0.017 ng/mL (0.000-0.060)
[2018-12-15 12:13] VITALS: BP 182/91
--- NOTE | 2018-12-15 18:12 | NUR ---
LYING QUIETLY. NO NEEDS VOICED. IV DCD. TELEMERTY SHOWS CAF 68. CALL LIGHT IN REACH
--- NOTE | 2018-12-15 19:13 | NUR ---
INITIAL ROUNDS COMPLETED. PT DENIES ANY DISCOMFORT. SR UP X2, CALL LIGHT WITHIN REACH.
--- NOTE | 2018-12-15 19:58 | NUR ---
ASSESSMENT COMPLETED AT 1925 H RS. CAF PER CM. PT DENIED ANY DISCOMFORT. NO IV ACCESS. LUNGS DIMINISHED IN BASES BILAT CABALLERO. PALPABLE PERIPHERAL PULSES. FAMILY AT BEDSIDE. SR UP X2, CALL LIGHT WITHIN REACH.
[2018-12-15 20:00] VITALS: BP 172/53
--- NOTE | 2018-12-15 21:27 | NUR ---
PM MEDS GIVEN. FAMILY AT BEDSIDE.
[2018-12-16] VITALS: BP 159/82
--- NOTE | 2018-12-16 00:17 | NUR ---
PT RESTING WITH EYES CLOSED. RESP EVEN AND REGULAR. SR UP X2, CALL LIGHT WITHIN REACH.
--- NOTE | 2018-12-16 02:17 | NUR ---
PT RESTING WITH EYES CLOSED. RESP EVEN AND REGULAR. SR UP X2, CALL LIGHT WITHIN REACH.
[2018-12-16 04:00] VITALS: BP 155/83
--- NOTE | 2018-12-16 04:04 | NUR ---
PT RESTING WITH EYES CLOSED. RESP EVEN AND REGULAR. SR UP X2, CALL LIGHT WITHIN REACH.
[2018-12-16 05:56] LABS: HEMATOCRIT 40.7 % (42.0-54.0); HEMOGLOBIN 14.1 g/dL (13.5-17.5); LYMPHOCYTES 17.4 % (15-50); MCH 30.5 pg (26.0-34.0); MCHC 34.6 g/dL (31.0-37.0); MCV 88.1 fL (80.0-100.0); MEAN PLATELET VOLUME 10.7 fL (7.4-10.4); NEUTROPHILS 71.3 % (40-80); PLATELET COUNT 156 10x3/uL (130-400); RBC 4.62 10x6/uL (4.20-6.10); RDW 12.7 % (11.5-14.5); WBC 7.3 10x3/uL (4.8-10.8)
--- NOTE | 2018-12-16 06:15 | NUR ---
VSS THROUGHOUT NIGHT. CAF PER CM. PT DENIED ANY DISCOMFORT. NEEDS MET; WILL CONTINUE TO MONITOR.
[2018-12-16 06:31] LABS: ANION GAP 9.8 mmol/L (8-16); BILIRUBIN - TOTAL 0.78 mg/dL (0.2-1.3); CALCIUM 8.8 mg/dL (8.5-10.1); CARBON DIOXIDE 30.6 mmol/L (21.0-32.0); CREATININE - SERUM 1.2 mg/dL (0.6-1.3); POTASSIUM - SERUM 3.4 mmol/L (3.5-5.1); PROTEIN - SERUM 6.8 g/dL (6.4-8.2)
--- NOTE | 2018-12-16 07:26 | NUR ---
ASSESMENT COMPLETED. ALERT AND ORIENTED. TELEMERTY SHOWS CAF AT 68. KT LOW AT 3.4 AND WAS TREATED. DENIES ANY NEEDS. SR UP WITH CALL LIGHT IN REACH. WILL MONITOR
[2018-12-16 08:55] VITALS: BP 141/82
[2018-12-16 13:01] VITALS: BP 151/94
--- NOTE | 2018-12-16 14:38 | NUR ---
I have reviewed this patient and I concur with the Shift Assessment completed by the Licensed Practical Nurse today this shift.
--- NOTE | 2018-12-16 16:08 | NUR ---
DISCHARGED HOME. TO PRIVATE CAR PER WHEELCHAIR. INSTRUCTIONS GIVEN TO PT AND .
--- NOTE | 2018-12-17 09:33 | MORECARE ---
CASE MANAGEMENT DISCHARGE SUMMARY PATIENT: VICKIE SMTIH UNIT: [id number] ADM DATE: 12/14/18 AGE: 68 : 48 SEX: M ROOM/BED: D.2122 AUTHOR: CRUZ WADE PHYSICIAN: REFERRING PHYSICIAN: INDIRA OSORIO MD DATE OF SERVICE: 12/17/18 Discharge Plan Patient Name: VICKIE SMITH Facility: [facility]:[place] : 1950 Planned Disposition: Home Anticipated Discharge Date: 12/16/18 Discharge Date: 12/16/2018 Expected LOS: 2 Initial Reviewer: [email or web address] Initial Review Date: 12/17/2018 Generated: 12/17/18 10:32 am Patient Name: VICKIE SMITH Page [phone] at 0933 All edits/amendments must be made on the electronic document DICTATION DATE: 12/17/18931 EMPLOYEE RELATIONS DIRECTOR: LIZZY 12/17/18931 RPT#: [id number] DC DATE:12/16/18 STATUS: DIS IN [facility] [address] [place] [address] END OF REPORT
== END 2018-12-16 16:12 | disposition home or self-care (01) ==
LOC: D.ER 18:46 → D.M2 21:23 → OBSVTIME 21:23 → D.M2 12-16 16:12
PROVIDERS: Family Medicine; ADMIT Family Medicine; ATTEND Family Medicine
DX: I20.0 Unstable angina (principal); I11.0 Hypertensive heart disease with heart failure; I50.21 Acute systolic (congestive) heart failure; I34.0 Nonrheumatic mitral (valve) insufficiency; I48.91 Unspecified atrial fibrillation; E83.42 Hypomagnesemia; E11.65 Type 2 diabetes mellitus with hyperglycemia; K21.9 Gastro-esophageal reflux disease without esophagitis; M19.90 Unspecified osteoarthritis, unspecified site